=== PATIENT | male | born 1990 | race African-American/Black ===

== ENCOUNTER → 2016-12-14 | Outpatient (CLI) | payer OTHER ==
[~2016-12-14] MED LIST: FLUO27.5 PO; TRAZ1TAB16 PO
--- NOTE | 2016-12-14 16:17 | DIAGNOSTIC IMAGING REPORT ---
Brain MRI WITHOUT CONTRAST HISTORY: Paresthesias. Change in mental status. PARE THESIS OF SKIN, R/O MS TECHNIQUE: Multiplanar multisequence MRI of the brain was performed without the use of contrast. COMPARISON STUDY: None. FINDINGS: There are no areas of restricted diffusion to suggest acute infarction. The midline structures are intact. The paranasal sinuses are clear. The mastoid air cells are clear. The ventricles and sulci are within normal limits for age. There is no mass, hematoma, midline shift. The major vascular flow-voids at the skull base are well maintained. IMPRESSION: No acute intracranial abnormality. Electronically signed by: José Miguel Thomas M.D. 12/14/2016 4:16 PM Dictated Date/Time: 12/14/2016 4:14 PM
== END | disposition home or self-care (01) ==
LOC: C.MRI 15:27
PROVIDERS: ATTEND Family Medicine
DX: R20.2 Paresthesia of skin (principal)